=== PATIENT | female | born 1950 | race Caucasian/White ===

== ENCOUNTER 2017-04-13 10:18 | Outpatient (CLI) | payer OTHER, MEDICARE | END 2017-04-13 10:19 | disposition home or self-care (01) | LOC: LAB.F 10:18 | PROVIDERS: ATTEND Internal Medicine Cardiovascular Disease | DX: I48.91 Unspecified atrial fibrillation (principal) | CPT/HCPCS: 85610 ==

== ENCOUNTER 2017-06-02 00:02 | Emergency (ER) | payer MEDICARE, OTHER ==
[2017-06-02] MEDS ORDERED: diphenhydrAMINE 25 MG CAPSULE PO STA (00:15)
[2017-06-02] MEDS ORDERED: FAMOTIDINE 20 MG TABLET PO STA (00:15)
[2017-06-02] MEDS ORDERED: predniSONE 20 MG TABLET PO STA (00:15)
[2017-06-02] MEDS ORDERED: FAMOTIDINE 20 MG TABLET ONE (00:55)
[2017-06-02] MEDS ORDERED: diphenhydrAMINE 25 MG CAPSULE PO ONE (00:56)
--- NOTE | 2017-06-02 00:57 | ED Physician Documentation ---
History of Present Illness - Stated complaint Stated Complaint: ALLERGIC REACTION - Chief complaint Chief Complaint: Allergic Rx - History obtained from History obtained from: Patient - History of Present Illness Timing: Prior to arrival - Additonal information Additional information: Patient is a 66 year old female with multiple allergies who is presenting to the emergency department for allergic reaction. patient states that she placed new perfume on her pillow and it caused her to get a scratchy throat and wheeze. patient did not have any benadryl at home so she came to the emergency department. Upon initial evaluation in the emergency department patient stated that her symptoms had resolved. 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, 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 HEENT: Tonsil/Adenoidectomy - Present Medications Home Medications: Ambulatory Orders Medication Instructions Recorded Confirmed Clindamycin [Cleocin] 300 mg PO Q6H 7 Days 01/26/16 Diltiazem HCl [Taztia Xt] 360 mg 01/26/16 Fluconazole [Diflucan] 150 mg PO ONCE #1 tablet 01/26/16 Propafenone [Rythmol] 225 mg 01/26/16 Rivaroxaban [Xarelto] 20 mg 01/26/16 - Allergies Allergies/Adverse Reactions: Allergies Allergy/AdvReac Type Severity Reaction Status Date / Time cephalexin monohydrate * Allergy Anaphylaxis Verified 01/26/16 13:11 [From Keflex] clobetasol Allergy Rash Verified 01/26/16 13:10 nitrofurantoin Allergy Hives Verified 01/26/16 13:11 [From Macrobid] nitrofurantoin Allergy Hives Verified 01/26/16 13:11 macrocrystalline * [From Macrobid] Penicillins Allergy Anaphylaxis Verified 01/26/16 13:11 sulfamethoxazole Allergy Hives Verified 01/26/16 13:11 [From Bactrim] trimethoprim [From Bactrim] Allergy Hives Verified 01/26/16 13:11 - Social History Does the pt smoke?: No Smoking Status: Never smoker Does the pt drink ETOH?: Yes Does the pt have substance abuse?: No - Immunizations Immunizations are current?: Yes PD ED PE NORMAL - Vitals Vital signs reviewed: Yes - General General: Alert and oriented X 3, No acute distress, Well developed/nourished - HEENT HEENT: Atraumatic, PERRL, Other (no soft palate swelling) - Neck Neck: Supple, no meningeal sign, No JVD - Cardiac Cardiac: RRR, No murmur, No rub - Respiratory Respiratory: No respiratory distress, Clear bilaterally - Abdomen Abdomen: Soft, Non tender, Non distended - Derm Derm: Normal color, Warm and dry, No rash - Extremities Extremities: No deformity, No tenderness to palpate - Neuro Neuro: Alert and oriented X 3, yeast stacker 2-12 intact, No motor deficit, No sensory deficit, Normal speech - Psych Psych: Normal mood, Normal affect Results - Vitals Vitals: Vital Signs - 24 hr 06/02/17 06/02/17 00:10 01:05 Heart Rate 109 H 84 Respiratory 17 16 Rate Blood Pressure 154/93 H 142/82 H O2 Saturation 96 98 Oxygen O2 Source Room air PD MEDICAL DECISION MAKING - ED course Complexity details: reviewed old records, re-evaluated patient, d/w patient ED course: Patient was seen and examined at bedside. Patient was treated with pepcid but wanted to take the benadryl at home. Patient was offered steroids but stated that she might have an allergic reaction to them so she did not want to take them. patient stated that she wanted to return home. patient was given detailed discharge and return instructions. patient was stable for discharge with outpatient follow up. Departure - Departure Disposition: 01 Home, Self Care Clinical Impression: Allergic reaction Condition: Good Instructions: ED Allergic Reaction Local Other Follow-Up: primary,care provider [Other] - As Needed Comments: Your symptoms today were likely secondary to an allergic reaction. You will need to take the benadryl when you get home. You can continue with the benadryl and pepcid at home. You should return to the emergency department for throat closure, shortness of breath, new worsening or uncontrollable symptoms. Discharge Date/Time: 06/02/17 01:15
[2017-06-02 01:26] VITALS: BP 142/82
== END 2017-06-02 01:15 | disposition home or self-care (01) ==
LOC: ED 00:02
DX: T78.49XA Other allergy, initial encounter (principal); X58.XXXA Exposure to other specified factors, initial encounter; I48.91 Unspecified atrial fibrillation
CPT/HCPCS: 99282; 99283; A9270

== ENCOUNTER 2017-09-05 12:33 | Outpatient (CLI) | payer OTHER | END 2017-09-05 12:34 | disposition home or self-care (01) | LOC: LAB.F 12:33 | PROVIDERS: ATTEND Internal Medicine Cardiovascular Disease | DX: I48.91 Unspecified atrial fibrillation (principal) | CPT/HCPCS: 85610 ==

== ENCOUNTER 2017-12-27 15:10 | Outpatient (CLI) | payer OTHER, MEDICARE | END 2017-12-27 15:11 | disposition home or self-care (01) | LOC: LAB.F 15:10 | PROVIDERS: ATTEND Internal Medicine Cardiovascular Disease | DX: I48.91 Unspecified atrial fibrillation (principal) | CPT/HCPCS: 85610 ==

== ENCOUNTER 2018-02-01 11:39 | Outpatient (CLI) | payer OTHER, MEDICARE | END 2018-02-01 11:40 | disposition home or self-care (01) | LOC: LAB.F 11:39 | PROVIDERS: ATTEND Internal Medicine Cardiovascular Disease | DX: I48.91 Unspecified atrial fibrillation (principal) | CPT/HCPCS: 85610 ==

== ENCOUNTER 2018-03-28 15:27 | Outpatient (CLI) | payer OTHER, MEDICARE | END 2018-03-28 15:28 | disposition home or self-care (01) | LOC: LAB.F 15:27 | PROVIDERS: ATTEND Internal Medicine Cardiovascular Disease | DX: I48.91 Unspecified atrial fibrillation (principal) | CPT/HCPCS: 85610 ==

== ENCOUNTER 2018-04-12 08:00 | Outpatient (CLI) | payer OTHER, MEDICARE | END 2018-04-12 08:01 | disposition home or self-care (01) | LOC: LAB.F 08:00 | PROVIDERS: ATTEND Internal Medicine Cardiovascular Disease | DX: I48.91 Unspecified atrial fibrillation (principal) | CPT/HCPCS: 85610 ==

== ENCOUNTER 2018-07-12 08:00 | Outpatient (CLI) | payer OTHER, MEDICARE | END 2018-07-12 08:01 | disposition home or self-care (01) | LOC: LAB.F 08:00 | PROVIDERS: ATTEND Internal Medicine Cardiovascular Disease | DX: I48.91 Unspecified atrial fibrillation (principal) | CPT/HCPCS: 85610 ==

== ENCOUNTER 2018-09-06 10:32 | Outpatient (CLI) | payer OTHER, MEDICARE | END 2018-09-06 10:33 | disposition home or self-care (01) | LOC: LAB.F 10:32 | PROVIDERS: ATTEND Internal Medicine Cardiovascular Disease | DX: I48.91 Unspecified atrial fibrillation (principal) | CPT/HCPCS: 85610 ==

== ENCOUNTER 2018-10-18 10:09 | Outpatient (CLI) | payer OTHER, MEDICARE | END 2018-10-18 10:10 | disposition home or self-care (01) | LOC: LAB.F 10:09 | PROVIDERS: ATTEND Internal Medicine Cardiovascular Disease | DX: I48.91 Unspecified atrial fibrillation (principal) | CPT/HCPCS: 85610 ==

== ENCOUNTER 2018-11-21 11:07 | Outpatient (CLI) | payer OTHER, MEDICARE | END 2018-11-21 11:08 | disposition home or self-care (01) | LOC: LAB.F 11:07 | PROVIDERS: ATTEND Internal Medicine Cardiovascular Disease | DX: I48.91 Unspecified atrial fibrillation (principal) | CPT/HCPCS: 85610 ==